=== PATIENT | male | born 1975 | race Hispanic/Latino ===

== ENCOUNTER 2020-12-28 08:08 | Day surgery (SDC) | payer OTHER ==
[2020-12-28] VITALS (7 sets, daily range): BP systolic 93–124; BP diastolic 40–73
[~2020-12-28 08:08] MED LIST: HYDR-4105 PO; SODIUM CHLORIDE 0.9% 1000ML 1,000 ML IV ONE
[2020-12-28 08:40] LABS: BASOPHILS % (AUTO) 0.3 % (0.0-5.0); EOSINOPHILS % (AUTO) 1.8 % (0.0-8.0); HEMATOCRIT 39.3 % (42-54); LYMPHOCYTES % (AUTO) 32.2 % (21.0-51.0); MEAN CORPUSCULAR HEMOGLOBIN 29.7 pg (27.0-33.0); MEAN CORPUSCULAR HGB CONC 32.6 g/dL (32.0-36.0); MEAN CORPUSCULAR VOLUME 91.2 fL (79-99); MONOCYTES % (AUTO) 6.4 % (3.0-13.0); NEUTROPHILS % (AUTO) 58.9 % (40.0-77.0); PLATELET COUNT (AUTO) 269 K/uL (130-400); RED BLOOD CELL COUNT(AUTO) 4.31 MIL/uL (4.50-6.20); RED CELL DISTRIBUTION WIDTH 16.2 % (11.0-15.5)
[2020-12-28 08:50] LABS: POTASSIUM 3.8 mmol/L (3.5-5.1)
[2020-12-28] MEDS ORDERED: LIDOCAINE HCL-MPF 2% 5ML VIAL ONE (10:11)
[2020-12-28] MEDS ORDERED: PROPOFOL 10 MG/ML 20ML VIAL IV ONE (10:11)
[2020-12-28] MEDS ORDERED: GLYCOPYRROLATE 1 MG/5 ML SYRINGE ONE (10:11)
[2020-12-28] MEDS ORDERED: FENTANYL CITRATE PF 50 MCG/1 ML 2ML VIAL ONE (10:24)
== END 2020-12-28 11:20 | disposition home or self-care (01) ==
LOC: ENDO 08:08 → DAH 08:08 → ENDO 11:20
PROVIDERS: ATTEND Surgery
DX: Z43.3 Encounter for attention to colostomy (principal); Z20.822 Contact with and (suspected) exposure to COVID-19; K57.30 Diverticulosis of large intestine without perforation or abscess without bleeding; K59.00 Constipation, unspecified; Z79.899 Other long term (current) drug therapy
CPT/HCPCS: 36415; 44388; 45378; 80048; 85025; A4215; A4221; A4222; A4223; A4606; A4620; A4663; C9803; J2704; J3010; J3490 ×2; J7030; U0003

== ENCOUNTER 2021-01-04 14:00 | Inpatient (IN) | payer OTHER ==
[~2021-01-04] VITALS: Ht 175.3 cm; Wt 71.4 kg
[~2021-01-04 14:00] MED LIST changes: -HYDR-4105 PO; +HYDR-4766 PO; -SODIUM CHLORIDE 0.9% 1000ML 1,000 ML IV ONE
[2021-01-04 14:43] LABS: BASOPHILS % (AUTO) 0.5 % (0.0-5.0); EOSINOPHILS % (AUTO) 2.9 % (0.0-8.0); HEMATOCRIT 37.9 % (42-54); MEAN CORPUSCULAR HEMOGLOBIN 28.7 pg (27.0-33.0); MEAN CORPUSCULAR HGB CONC 31.9 g/dL (32.0-36.0); MONOCYTES % (AUTO) 7.1 % (3.0-13.0); NEUTROPHILS % (AUTO) 46.2 % (40.0-77.0); PLATELET COUNT (AUTO) 281 K/uL (130-400); RED BLOOD CELL COUNT(AUTO) 4.21 MIL/uL (4.50-6.20); RED CELL DISTRIBUTION WIDTH 15.6 % (11.0-15.5); WHITE BLOOD COUNT (AUTO) 8.9 K/uL (4.8-10.8)
[2021-01-04 14:50] LABS: CREATININE 1.1 mg/dL (0.5-1.5); POTASSIUM 4.5 mmol/L (3.5-5.1)
[2021-01-04 14:53] LABS: PROTHROMBIN TIME 10.9 SEC (9.6-11.6)
[2021-01-04 14:54] LABS: PARTIAL THROMBOPLASTIN TIME 27.1 SEC (26.3-35.5)
[2021-01-10 11:11] VITALS: BP 115/62
[2021-01-11] VITALS (22 sets, daily range): BP systolic 108–131; BP diastolic 48–76
[2021-01-11] MEDS ORDERED: CEFAZOLIN SODIUM 1 GM VIAL ONE (09:08)
[2021-01-11] MEDS ORDERED: LACTATED RINGERS 1000ML 1,000 ML IV ONE (09:08)
[2021-01-11] MEDS ORDERED: MIDAZOLAM HCL 1 MG/ML 2ML VIAL ONE ×2 (15:55→19:22)
[2021-01-11] MEDS ORDERED: ROCURONIUM 10MG/1ML SYR 10 MG/ML ML ONE ×2 (15:55→16:38)
[2021-01-11] MEDS ORDERED: LIDOCAINE PF 100MG/5ML (2%) SYRINGE 5ML ONE (15:55)
[2021-01-11] MEDS ORDERED: PROPOFOL 10 MG/ML 20ML VIAL IV ONE (15:55)
[2021-01-11] MEDS ORDERED: FENTANYL CITRATE PF 50 MCG/1 ML 2ML VIAL ONE ×2 (15:59→18:29)
[2021-01-11] MEDS ORDERED: ROPIVACAINE 0.5% 5MG/ML 30ML IJ ONE (17:08)
[2021-01-11] MEDS ORDERED: DEXAMETHASONE SOD PHOSPHATE 4 MG/ML 1ML VIAL ONE (17:09)
[2021-01-11] MEDS ORDERED: GLYCOPYRROLATE 1 MG/5 ML SYRINGE ONE (17:09)
[2021-01-11] MEDS ORDERED: ONDANSETRON 4MG INJ ONE (17:09)
[2021-01-11] MEDS ORDERED: NEOSTIGMINE 5MG/5ML SYR IV ONE (17:09)
[2021-01-11] MEDS ORDERED: 0.9%NACL 10ML VIAL ONE ×2 (17:39→18:11)
[2021-01-11] MEDS ORDERED: HYDROCODONE/ACETAMINOPHEN 5/325 MG TAB PO PRN (18:30)
[2021-01-11] MEDS: CEFAZOLIN SODIUM 1 GM VIAL IVP SCH (18:30)
[2021-01-11] MEDS ORDERED: MORPHINE 2 MG SYG IV PRN (18:30)
[2021-01-11] MEDS ORDERED: MEPERIDINE-PF 25 MG/ML SYG ONE ×3 (19:16→19:41)
[2021-01-11] MEDS: LACTATED RINGERS 1000ML 1,000 ML IV SCH (20:46)
[2021-01-11] MEDS: METRONIDAZOLE 500MG/100ML BAG 100 ML IVPB SCH (22:26)
[2021-01-11] MEDS: MORPHINE 4 MG SYG IV PRN (22:26)
[2021-01-12] MEDS: HYDROCODONE/ACETAMINOPHEN 5/325 MG TAB PO PRN ×5 (00:02→23:46)
[2021-01-12] MEDS: CEFAZOLIN SODIUM 1 GM VIAL IVP SCH (01:33)
[2021-01-12] MEDS: MORPHINE 4 MG SYG IV PRN ×4 (02:11→20:02)
[2021-01-12] MEDS: ONDANSETRON 4MG INJ IVP PRN ×3 (02:12→20:02)
[2021-01-12 03:43] LABS: BASOPHILS % (AUTO) 0.1 % (0.0-5.0); HEMATOCRIT 35.8 % (42-54); LYMPHOCYTES % (AUTO) 6.5 % (21.0-51.0); MEAN CORPUSCULAR HEMOGLOBIN 28.5 pg (27.0-33.0); MEAN CORPUSCULAR HGB CONC 32.4 g/dL (32.0-36.0); MONOCYTES % (AUTO) 4.5 % (3.0-13.0); NEUTROPHILS % (AUTO) 88.5 % (40.0-77.0); PLATELET COUNT (AUTO) 279 K/uL (130-400); RED BLOOD CELL COUNT(AUTO) 4.07 MIL/uL (4.50-6.20); RED CELL DISTRIBUTION WIDTH 15.8 % (11.0-15.5); WHITE BLOOD COUNT (AUTO) 16.4 K/uL (4.8-10.8)
[2021-01-12 03:56] LABS: CREATININE 1.1 mg/dL (0.5-1.5); POTASSIUM 4.7 mmol/L (3.5-5.1)
[2021-01-12 04:00] VITALS: BP 115/69
[2021-01-12] MEDS: LACTATED RINGERS 1000ML 1,000 ML IV SCH ×3 (05:16→18:30)
[2021-01-12] MEDS: METRONIDAZOLE 500MG/100ML BAG 100 ML IVPB SCH (06:15)
[2021-01-12 07:43] VITALS: BP 112/53
[2021-01-12 11:44] VITALS: BP 117/75
[2021-01-12 15:50] VITALS: BP 117/75
[2021-01-12 20:37] VITALS: BP 134/70
[2021-01-12] MEDS: PANTOPRAZOLE 40 MG/VIAL IVP SCH (21:41)
[2021-01-13 00:47] VITALS: BP 127/59
[2021-01-13] MEDS: ONDANSETRON 4MG INJ IVP PRN ×2 (02:01→14:01)
[2021-01-13] MEDS: MORPHINE 4 MG SYG IV PRN ×3 (02:02→11:11)
[2021-01-13] MEDS: LACTATED RINGERS 1000ML 1,000 ML IV SCH ×3 (02:30→18:36)
[2021-01-13 04:43] LABS: BASOPHILS % (AUTO) 0.1 % (0.0-5.0); EOSINOPHILS % (AUTO) 0.1 % (0.0-8.0); HEMATOCRIT 33.6 % (42-54); LYMPHOCYTES % (AUTO) 17.5 % (21.0-51.0); MEAN CORPUSCULAR HEMOGLOBIN 29.1 pg (27.0-33.0); MEAN CORPUSCULAR HGB CONC 32.7 g/dL (32.0-36.0); MEAN CORPUSCULAR VOLUME 88.9 fL (79-99); MONOCYTES % (AUTO) 6.4 % (3.0-13.0); NEUTROPHILS % (AUTO) 75.5 % (40.0-77.0); PLATELET COUNT (AUTO) 249 K/uL (130-400); RED BLOOD CELL COUNT(AUTO) 3.78 MIL/uL (4.50-6.20); RED CELL DISTRIBUTION WIDTH 15.9 % (11.0-15.5)
[2021-01-13 07:29] VITALS: BP 115/72
[2021-01-13] MEDS: PANTOPRAZOLE 40 MG/VIAL IVP SCH ×2 (07:57→20:19)
[2021-01-13 11:48] VITALS: BP 125/74
[2021-01-13] MEDS ORDERED: HYDROCODONE/ACETAMINOPHEN 5/325 MG TAB PO PRN (14:45)
[2021-01-13 15:57] VITALS: BP 131/80
[2021-01-13] MEDS: HYDROCODONE/ACETAMINOPHEN 5/325 MG TAB PO PRN (16:46)
[2021-01-13 19:44] VITALS: BP 111/76
[2021-01-13] MEDS: MORPHINE 2 MG SYG IV PRN (21:00)
[2021-01-13 23:28] VITALS: BP 126/73
[2021-01-14] MEDS: HYDROCODONE/ACETAMINOPHEN 5/325 MG TAB PO PRN ×4 (00:14→20:06)
[2021-01-14] MEDS: LACTATED RINGERS 1000ML 1,000 ML IV SCH ×4 (01:38→20:07)
[2021-01-14] MEDS: MORPHINE 2 MG SYG IV PRN (03:44)
[2021-01-14 04:14] VITALS: BP 116/73
[2021-01-14 04:56] LABS: BASOPHILS % (AUTO) 0.2 % (0.0-5.0); EOSINOPHILS % (AUTO) 1.8 % (0.0-8.0); HEMATOCRIT 30.3 % (42-54); LYMPHOCYTES % (AUTO) 20.1 % (21.0-51.0); MEAN CORPUSCULAR HEMOGLOBIN 29.3 pg (27.0-33.0); MEAN CORPUSCULAR VOLUME 88.9 fL (79-99); MONOCYTES % (AUTO) 7.8 % (3.0-13.0); NEUTROPHILS % (AUTO) 69.7 % (40.0-77.0); PLATELET COUNT (AUTO) 233 K/uL (130-400); RED BLOOD CELL COUNT(AUTO) 3.41 MIL/uL (4.50-6.20); RED CELL DISTRIBUTION WIDTH 15.6 % (11.0-15.5); WHITE BLOOD COUNT (AUTO) 11.4 K/uL (4.8-10.8)
[2021-01-14 07:36] VITALS: BP 94/74
[2021-01-14] MEDS: PANTOPRAZOLE 40 MG/VIAL IVP SCH ×2 (09:45→20:06)
[2021-01-14] MEDS: MORPHINE 4 MG SYG IV PRN (09:45)
[2021-01-14 10:49] VITALS: BP 124/76
[2021-01-14 15:54] VITALS: BP 113/73
[2021-01-14 20:12] VITALS: BP 120/70
[2021-01-15] VITALS (7 sets, daily range): BP systolic 116–142; BP diastolic 67–86
[2021-01-15] MEDS: HYDROCODONE/ACETAMINOPHEN 5/325 MG TAB PO PRN ×3 (02:28→16:48)
[2021-01-15] MEDS: MORPHINE 2 MG SYG IV PRN ×2 (06:30→20:00)
[2021-01-15] MEDS: PANTOPRAZOLE 40 MG/VIAL IVP SCH ×2 (08:40→19:54)
[2021-01-16] MEDS: HYDROCODONE/ACETAMINOPHEN 5/325 MG TAB PO PRN ×4 (01:36→22:14)
[2021-01-16] MEDS: MORPHINE 2 MG SYG IV PRN (03:34)
[2021-01-16 03:53] VITALS: BP 130/59
[2021-01-16 07:11] VITALS: BP 126/60
[2021-01-16] MEDS: PANTOPRAZOLE 40 MG/VIAL IVP SCH ×2 (08:20→22:08)
[2021-01-16] MEDS ORDERED: PIP/TAZ ZOSYN 3.375G 3.375 GM VIAL IVPB SCH (10:30)
[2021-01-16] MEDS ORDERED: 0.9%NACL 50ML IV SCH (10:30)
[2021-01-16 10:40] LABS: HEMATOCRIT 32.9 % (42-54); MEAN CORPUSCULAR HEMOGLOBIN 29.3 pg (27.0-33.0); MEAN CORPUSCULAR HGB CONC 33.4 g/dL (32.0-36.0); MEAN CORPUSCULAR VOLUME 87.5 fL (79-99); PLATELET COUNT (AUTO) 327 K/uL (130-400); RED BLOOD CELL COUNT(AUTO) 3.76 MIL/uL (4.50-6.20); RED CELL DISTRIBUTION WIDTH 14.6 % (11.0-15.5); WHITE BLOOD COUNT (AUTO) 9.3 K/uL (4.8-10.8)
[2021-01-16] MEDS ORDERED: 0.9%NACL 50ML 50 ML IV SCH ×2 (10:45→21:15)
[2021-01-16 11:19] LABS: EOSINOPHILS % (MANUAL) 2 % (1-6); LYMPHOCYTES % (MANUAL) 29 % (22-44); MAN.DIFF COMMENT-IMPRESSION MANUAL DIFFERENTIAL; MONOCYTES % (MANUAL) 6 % (2-9); PLATELET MORPHOLOGY COMMENT ADEQUATE; SEGMENTED NEUTROPHILS % 63 % (40-70)
[2021-01-16 11:48] VITALS: BP 139/84
[2021-01-16] MEDS ORDERED: ZOSYN 3.375 IV SCH ×2 (13:00→21:15)
[2021-01-16] MEDS: MUPIROCIN OINTMENT 22 GM TUBE TP SCH ×2 (14:33→22:08)
[2021-01-16] MEDS ORDERED: ZOSYN 3.375GM+NS 50ML 50 ML IV ONE (15:29)
[2021-01-16 15:48] VITALS: BP 131/71
[2021-01-16 19:00] VITALS: BP 119/74
[2021-01-16] MEDS: MORPHINE 4 MG SYG IV PRN (19:18)
[2021-01-16] MEDS ORDERED: HYDROCODONE/ACETAMINOPHEN 5/325 MG TAB PO PRN (19:30)
[2021-01-16] MEDS: ZOSYN 3.375GM+NS 50ML 50 ML IV SCH (22:07)
[2021-01-16 23:50] VITALS: BP 114/58
[2021-01-17] MEDS: ZOSYN 3.375GM+NS 50ML 50 ML IV SCH ×3 (03:39→20:06)
[2021-01-17] MEDS: HYDROCODONE/ACETAMINOPHEN 5/325 MG TAB PO PRN ×3 (03:41→17:28)
[2021-01-17 04:00] VITALS: BP 118/60
[2021-01-17 07:26] VITALS: BP 124/71
[2021-01-17] MEDS: PANTOPRAZOLE 40 MG/VIAL IVP SCH ×2 (08:40→20:11)
[2021-01-17] MEDS: MORPHINE 4 MG SYG IV PRN (08:41)
[2021-01-17] MEDS: ONDANSETRON 4MG INJ IVP PRN (08:41)
[2021-01-17 11:40] VITALS: BP 132/80
[2021-01-17 15:37] VITALS: BP 119/76
[2021-01-17 20:00] VITALS: BP 140/90
[2021-01-17] MEDS: MORPHINE 2 MG SYG IV PRN (22:46)
[2021-01-18] VITALS: BP 113/62
[2021-01-18 04:00] VITALS: BP 114/61
[2021-01-18] MEDS: ZOSYN 3.375GM+NS 50ML 50 ML IV SCH ×2 (04:35→12:04)
[2021-01-18] MEDS: HYDROCODONE/ACETAMINOPHEN 5/325 MG TAB PO PRN ×2 (04:40→12:04)
[2021-01-18 05:06] LABS: BASOPHILS % (AUTO) 0.3 % (0.0-5.0); EOSINOPHILS % (AUTO) 4.2 % (0.0-8.0); HEMATOCRIT 30.9 % (42-54); LYMPHOCYTES % (AUTO) 21.2 % (21.0-51.0); MEAN CORPUSCULAR HEMOGLOBIN 28.6 pg (27.0-33.0); MEAN CORPUSCULAR VOLUME 86.6 fL (79-99); MONOCYTES % (AUTO) 7.4 % (3.0-13.0); NEUTROPHILS % (AUTO) 66.5 % (40.0-77.0); PLATELET COUNT (AUTO) 388 K/uL (130-400); RED BLOOD CELL COUNT(AUTO) 3.57 MIL/uL (4.50-6.20); RED CELL DISTRIBUTION WIDTH 14.3 % (11.0-15.5)
[2021-01-18] MEDS: PANTOPRAZOLE 40 MG/VIAL IVP SCH (05:15)
[2021-01-18 05:44] LABS: POTASSIUM 3.7 mmol/L (3.5-5.1)
[2021-01-18 08:00] VITALS: BP 114/73
[2021-01-18 11:58] VITALS: BP 133/81
[2021-01-18 16:00] VITALS: BP 134/84
[2021-01-18] MEDS: MORPHINE 2 MG SYG IV PRN (16:34)
[2021-01-18] MEDS ORDERED: TYL3B PO (17:30)
[2021-01-18] MEDS ORDERED: AMOX-429 PO (17:30)
== END 2021-01-18 18:15 | disposition home health service (06) | DRG 330 ==
LOC: EDSTATUS 14:00 → DAHIP 01-11 07:58 → 4BH 01-11 20:02 → 3AH 01-13 17:47
PROVIDERS: ADMIT Surgery; ATTEND Surgery
PROC: 0DBN0ZZ Excision of Sigmoid Colon, Open Approach (ICD-10-PCS; principal; 2021-01-11 16:37)
PROC: 3E0T3BZ Introduction of Anesthetic Agent into Peripheral Nerves and Plexi, Percutaneous Approach (ICD-10-PCS; 2021-01-11 16:37)
DX: Z43.3 Encounter for attention to colostomy (principal); L03.311 Cellulitis of abdominal wall; T81.40XA Infection following a procedure, unspecified, initial encounter; K66.0 Peritoneal adhesions (postprocedural) (postinfection); Z20.822 Contact with and (suspected) exposure to COVID-19
CPT/HCPCS: 36415; 45378; 74018; 80048; 85025; 85610; 85730; 87070; 87076; 87077; 87186; 87635; 97039; A4344; C9113; G0378; J0690; J1100; J2001; J2175; J2250; J2270; J2405; J2543; J2704; J2710; J2795; J3010; J3490; J7030; J7120

== ENCOUNTER 2021-02-18 22:04 | Emergency (ER) | payer OTHER ==
[~2021-02-18] VITALS: Ht 170.2 cm; Wt 70.3 kg
[~2021-02-18 22:04] MED LIST changes: +AMOX-429 PO; +TYL3B PO
[2021-02-18] MEDS ORDERED: HYDROCODONE/ACETAMINOPHEN 10/325 MG TAB PO ONE (22:30)
[2021-02-18] MEDS ORDERED: PHARMACY COMMUNICATION MISC SCH (22:30)
[2021-02-18] MEDS ORDERED: BUPIVACAINE/PF 0.5% 10ML VIAL IJ ONE (22:30)
[2021-02-18 23:23] VITALS: BP 155/72
[2021-02-18] MEDS ORDERED: KETOROLAC 60 MG VIAL (30MG/ML) IM ONE (23:30)
[2021-02-18] MEDS ORDERED: DIAZEPAM 5 MG TABLET PO ONE (23:30)
[2021-02-19] MEDS ORDERED: TRIAMCINOLONE ACETONIDE 40 MG/ML 1ML VIAL SQ SCH (07:24)
[2021-02-19] MEDS ORDERED: NAPR-1180 PO (15:00)
== END 2021-02-18 22:29 | disposition home or self-care (01) ==
LOC: EDH 22:04
DX: M70.62 Trochanteric bursitis, left hip (principal); Z79.1 Long term (current) use of non-steroidal anti-inflammatories (NSAID)
CPT/HCPCS: 96372; 99283; J1885; J3301; J3490

== ENCOUNTER 2021-02-19 13:05 | Emergency (ER) | payer OTHER ==
[~2021-02-19] VITALS: Ht 172.7 cm; Wt 65.8 kg
[2021-02-19 13:07] VITALS: BP 125/84
[2021-02-19] MEDS ORDERED: TRIAMCINOLONE ACETONIDE 40 MG/ML 1ML VIAL IM SCH (14:00)
[2021-02-19] MEDS ORDERED: BUPIVACAINE/PF 0.5% 10ML VIAL IJ SCH (14:00)
[2021-02-19] MEDS ORDERED: NAPR-1180 PO (15:00)
[2021-02-19 15:16] VITALS: BP 121/78
== END 2021-02-19 15:16 | disposition home or self-care (01) ==
LOC: EDH 13:05
DX: M70.62 Trochanteric bursitis, left hip (principal); G89.29 Other chronic pain
CPT/HCPCS: 20610; 99283; J3301; J3490

== ENCOUNTER 2022-02-11 20:59 | Emergency (ER) | payer OTHER ==
[~2022-02-11] VITALS: Ht 172.7 cm; Wt 88.9 kg
[~2022-02-11 20:59] MED LIST changes: +NAPR-1180 PO
[2022-02-11 21:22] VITALS: BP 121/78
== END 2022-02-11 21:42 | disposition home or self-care (01) ==
LOC: EDH 20:59
DX: K43.2 Incisional hernia without obstruction or gangrene (principal); Z79.1 Long term (current) use of non-steroidal anti-inflammatories (NSAID); Z90.49 Acquired absence of other specified parts of digestive tract; Z93.3 Colostomy status
CPT/HCPCS: 99281